=== PATIENT | female | born 1975 | race Caucasian/White ===

== ENCOUNTER 2016-12-25 20:51 | Emergency (ER) | payer OTHER ==
[~2016-12-25] VITALS: Ht 157.5 cm; Wt 105.5 kg
[~2016-12-25 20:51] MED LIST: ABILIFY2 MG PO; ADVAIR 500/501 DISK IH; ALBUTEROL2.5 MG/3 M IH; AMITRIPTYLINE H25 MG PO; BACTROBAN NASAL1 G1 BOTH NARES; BENZONATATE200 MG PO; CLINDAMYCIN PHO60 GM TP; CLONAZEPAM0.5 MG PO; ENDOCET 5-3251 EACH PO; Ecotrin PO; FLEXERIL10 MG PO; FLOVENT 11120 INHALA IH; FUROSEMIDE20 MG PO; HYDROCODON-ACE1 EAC7 PO; IBUPROFEN600 MG PO; IBUPROFEN800 MG PO; LEXAPRO10 MG PO; LISINOPRIL30 MG PO; LISINOPRIL40 MG PO; LORATADINE10 M2 PO; LOTREL 5/201 CAPSULE PO; MAG-AL PLUS SUS30 ML PO; METFORMIN HCL500 M1 PO; NEXIUM40 MG PO; OXTELLAR XR150 MG PO; PENNSAID112 GM TP; PERCOCET 10/1 TABLET PO; PERCOCET 5/31 TABLET PO; PREDNISONE5 M2 PO; PROAIR HFA8.5 GM IH; PROMETHAZINE HC25 M1 PO; SOMA350 MG PO; SUCRALFATE1 GM/10 ML PO; TRAMADOL HCL50 MG PO; TYLENOL EXTRA500 MG PO; VOLTAREN75 MG PO; ZANAFLEX4 MG PO; ZANTAC150 MG PO; ZOFRAN4 MG PO
[2016-12-25 21:15] LABS: HEMATOCRIT 31.5 % (36.0-46.0); MCH 30.2 PG (29.0-34.0); MCHC 32.7 G/DL (30.0-36.0); MCV 92.4 FL (83-99); MEAN PLAT.VOLUME 9.3 uM^3 (9.5-12.4); PLATELET COUNT 271 K/uL (156-360); RBC DIS.WIDTH-CV 12.4 % (11.8-14.6); RBC DIS.WIDTH-SD 40.3 % (39-53); RED BLOOD COUNT 3.41 M/uL (3.80-5.20); WHITE BLOOD COUNT 9.6 K/uL (4.1-10.2)
[2016-12-25 21:27] LABS: CHLORIDE 108 mEq/L (99-109); POTASSIUM 3.8 mEq/L (3.7-5.4); SODIUM 141 mEq/L (136-147)
[2016-12-25 21:29] LABS: GLUCOSE 115 mg/dL (70-99)
[2016-12-25 21:31] LABS: ANION GAP 9 MEQ/L (2-14); TOTAL BILIRUBIN 0.3 mg/dL (0.0-1.0)
[2016-12-25 21:33] LABS: ALKALINE PHOSPHATASE 74 IU/L (3-129); GFR ESTIMATE (CALCULATED) > 59 mL/min/
[2016-12-25 21:34] LABS: UREA NITROGEN (BUN) 10 mg/dL (9-23)
[2016-12-25 21:42] LABS: QUANTITATIVE HCG < 4.0 MIU/ML
[2016-12-25 21:50] LABS: ADD MIUA? YES; BILIRUBIN NEGATIVE; BLOOD SMALL; COLOR YELLOW ((YELLOW)); GLUCOSE (STRIP) NEGATIVE; KETONES NEGATIVE; LEUKOCYTES NEGATIVE; NITRITE NEGATIVE; PH, URINE 6.5 (5-8); PROTEIN (STRIP) NEGATIVE; SPECIFIC GRAVITY 1.006 (1.000-1.030); UROBILINOGEN 0.2 MG/DL (0.2-1.0)
[2016-12-25 22:03] LABS: BACTERIA NONE SEEN; CASTS NONE SEEN /LPF; CRYSTALS NONE SEEN; EPITHELIAL CELLS RARE; MUCUS NONE SEEN; PATHOLOGICAL CAST NONE SEEN; RED BLOOD CELLS 0-5 /HPF (0-5); SMALL ROUND CELL NONE SEEN; UCUL ADDED? NO; WHITE BLOOD CELLS 0-5 /HPF (0-5); YEAST-LIKE CELL NONE SEEN
[2016-12-25 22:29] VITALS: BP 132/85
== END 2016-12-25 22:31 | disposition home or self-care (01) ==
LOC: EME 20:51
DX: R60.0 Localized edema (principal); D64.9 Anemia, unspecified; J45.909 Unspecified asthma, uncomplicated; G89.29 Other chronic pain; E11.9 Type 2 diabetes mellitus without complications; M79.7 Fibromyalgia; K21.9 Gastro-esophageal reflux disease without esophagitis; Z87.891 Personal history of nicotine dependence
CPT/HCPCS: 80053; 81003; 84702; 85027; 99281; 99285

== ENCOUNTER 2017-01-27 19:05 | Emergency (ER) | payer OTHER ==
[~2017-01-27] VITALS: Ht 157.5 cm; Wt 113.1 kg
[2017-01-27 21:44] VITALS: BP 134/76
== END 2017-01-27 21:48 | disposition home or self-care (01) ==
LOC: EME 19:05
DX: M25.511 Pain in right shoulder (principal); G89.29 Other chronic pain; J45.909 Unspecified asthma, uncomplicated; E11.9 Type 2 diabetes mellitus without complications; K21.9 Gastro-esophageal reflux disease without esophagitis; Z87.891 Personal history of nicotine dependence; I10 Essential (primary) hypertension
CPT/HCPCS: 99281; 99284; J1885; J2270; J3360

== ENCOUNTER 2017-10-10 12:01 | Day surgery (SDC) | payer OTHER ==
[~2017-10-10] VITALS: Ht 157.5 cm; Wt 117.9 kg
[2017-10-10 12:42] VITALS: BP 142/85
[2017-10-10 18:17] VITALS: BP 143/75
[2017-10-10 19:37] VITALS: BP 167/81
== END 2017-10-10 21:45 | disposition home or self-care (01) ==
LOC: SDC 12:01 → ENRESERV 17:29 → 2SOUTH 17:30 → ENRESERV 17:36 → 2EAST 18:12
PROC: 0RG10A0 Fusion of Cervical Vertebral Joint with Interbody Fusion Device, Anterior Approach, Anterior Column, Open Approach (ICD-10-PCS; principal; 2017-10-10)
PROC: 0RB30ZZ Excision of Cervical Vertebral Disc, Open Approach (ICD-10-PCS; principal; 2017-10-10)
DX: M50.123 Cervical disc disorder at C6-C7 level with radiculopathy (principal); M43.17 Spondylolisthesis, lumbosacral region; M54.16 Radiculopathy, lumbar region; E66.9 Obesity, unspecified; Z68.42 Body mass index [BMI] 45.0-49.9, adult; I10 Essential (primary) hypertension; K21.9 Gastro-esophageal reflux disease without esophagitis; J45.909 Unspecified asthma, uncomplicated; M25.511 Pain in right shoulder; Z87.891 Personal history of nicotine dependence; Z88.0 Allergy status to penicillin
CPT/HCPCS: 72020; 76000; C1713; G0378; J0131; J0330; J0690; J1170; J1885; J2250; J2405; J2710; J3010; J3480

== ENCOUNTER 2017-10-12 19:24 | Inpatient (IN) | payer OTHER ==
[~2017-10-12] VITALS: Ht 157.5 cm; Wt 122.9 kg
[2017-10-12 21:22] LABS: HEMATOCRIT 30.4 % (36.0-46.0); MCHC 32.6 G/DL (30.0-36.0); MCV 92.1 FL (83-99); MEAN PLAT.VOLUME 9.6 uM^3 (9.5-12.4); PLATELET COUNT 260 K/uL (156-360); RBC DIS.WIDTH-CV 12.4 % (11.8-14.6); RBC DIS.WIDTH-SD 41.4 % (39-53); WHITE BLOOD COUNT 8.7 K/uL (4.1-10.2)
[2017-10-12 21:30] LABS: CHLORIDE 101 mEq/L (99-109); POTASSIUM 3.9 mEq/L (3.7-5.4); SODIUM 137 mEq/L (136-147)
[2017-10-12 21:32] LABS: GLUCOSE 96 mg/dL (70-99)
[2017-10-12 21:34] LABS: ANION GAP 9 MEQ/L (2-14); TOTAL BILIRUBIN 0.4 mg/dL (0.0-1.0)
[2017-10-12 21:36] LABS: ALKALINE PHOSPHATASE 69 IU/L (3-129); GFR ESTIMATE (CALCULATED) > 59 mL/min/
[2017-10-12 21:37] LABS: UREA NITROGEN (BUN) 9 mg/dL (9-23)
[2017-10-13] MEDS ORDERED: PROTONIX40 MG PO (00:31)
[2017-10-13] MEDS ORDERED: FLONASE16 G1 BOTH NARES (00:32)
[2017-10-13] MEDS ORDERED: VENTOLIN HFA18 GM IH (00:34)
[2017-10-13 03:44] VITALS: BP 170/77
[2017-10-13 07:33] VITALS: BP 142/71
[2017-10-13 11:20] VITALS: BP 140/77
[2017-10-13 15:50] VITALS: BP 147/69
== END 2017-10-13 18:53 | disposition home or self-care (01) | DRG 155 ==
LOC: EME 19:24 → 2EAST 10-13 00:15 → EDOF 10-13 00:15 → ENRESERV 10-13 00:33 → 2EAST 10-13 01:10
PROVIDERS: Physician Assistant
DX: J39.2 Other diseases of pharynx (principal); G89.18 Other acute postprocedural pain; Z98.1 Arthrodesis status; E11.9 Type 2 diabetes mellitus without complications; J45.909 Unspecified asthma, uncomplicated; I10 Essential (primary) hypertension; K21.9 Gastro-esophageal reflux disease without esophagitis; M79.7 Fibromyalgia; E66.9 Obesity, unspecified; Z68.42 Body mass index [BMI] 45.0-49.9, adult; Z87.891 Personal history of nicotine dependence
CPT/HCPCS: 70491; 72020; 76000; 80053; 81003; 83605; 85027; 87040; 87651 90; 99281; 99285; C1713; G0378; J0131; J0330; J0690; J1100; J1170; J1200; J1885; J2250; J2405; J2710; J3010; J3480; J7030

== ENCOUNTER 2017-10-18 19:01 | Emergency (ER) | payer OTHER ==
[~2017-10-18] VITALS: Ht 157.5 cm; Wt 116.4 kg
[~2017-10-18 19:01] MED LIST changes: +FLONASE16 G1 BOTH NARES; +PROTONIX40 MG PO; +VENTOLIN HFA18 GM IH
[2017-10-18 19:57] LABS: EOSINOPHIL (%) 0 % (0-5); IMMATURE GRANULOCYTE (%) 1.7 % (0.0-0.7); IMMATURE GRANULOCYTE COUNT 0.3 K/uL; INSTRUMENT ABS NEUTROPHIL CT 16.5 K/uL; LYMPHOCYTE COUNT 2.2 K/uL (1.0-2.8); MCV 90.9 FL (83-99); MEAN PLAT.VOLUME 9.6 uM^3 (9.5-12.4); MONOCYTE (%) 3.8 % (3-12); MONOCYTE COUNT 0.8 K/uL (0-0.8); NEUTROPHIL (%) 83.1 % (45-76); NEUTROPHIL COUNT 16.5 K/uL (1.8-6.4); RBC DIS.WIDTH-CV 12.3 % (11.8-14.6); RBC DIS.WIDTH-SD 40.6 % (39-53); WHITE BLOOD COUNT 19.8 K/uL (4.1-10.2)
[2017-10-18 19:58] LABS: PLATELET COUNT 378 K/uL (156-360); RED BLOOD COUNT 4.07 M/uL (3.80-5.20)
[2017-10-18 20:04] LABS: CHLORIDE 106 mEq/L (99-109); SODIUM 138 mEq/L (136-147)
[2017-10-18 20:06] LABS: GLUCOSE 195 mg/dL (70-99)
[2017-10-18 20:07] LABS: ANION GAP 9 MEQ/L (2-14)
[2017-10-18 20:09] LABS: GFR ESTIMATE (CALCULATED) > 59 mL/min/
[2017-10-18 20:11] LABS: UREA NITROGEN (BUN) 25 mg/dL (9-23)
[2017-10-18 22:10] VITALS: BP 152/95
== END 2017-10-18 22:10 | disposition home or self-care (01) ==
LOC: EME 19:01
PROVIDERS: Physician Assistant
DX: G89.18 Other acute postprocedural pain (principal); R07.0 Pain in throat; R22.1 Localized swelling, mass and lump, neck; Z98.890 Other specified postprocedural states; Z98.1 Arthrodesis status; M79.7 Fibromyalgia; K21.9 Gastro-esophageal reflux disease without esophagitis; J45.909 Unspecified asthma, uncomplicated; I10 Essential (primary) hypertension; E11.9 Type 2 diabetes mellitus without complications; Z87.891 Personal history of nicotine dependence; Z88.0 Allergy status to penicillin; Z88.1 Allergy status to other antibiotic agents; Z88.5 Allergy status to narcotic agent; Z88.6 Allergy status to analgesic agent; Z88.8 Allergy status to other drugs, medicaments and biological substances
CPT/HCPCS: 70491; 71020; 80048; 85025; 99281; 99284; J1100; J2405; J3010; J7030

== ENCOUNTER 2018-07-10 16:09 | Emergency (ER) | payer OTHER ==
[~2018-07-10] VITALS: Ht 157.5 cm; Wt 106.4 kg
[2018-07-10] MEDS ORDERED: FLEXERIL10 MG PO (18:27)
[2018-07-10 18:32] VITALS: BP 123/71
== END 2018-07-10 18:21 | disposition home or self-care (01) ==
LOC: EME 16:09
DX: M54.2 Cervicalgia (principal); I10 Essential (primary) hypertension; E11.9 Type 2 diabetes mellitus without complications; K21.9 Gastro-esophageal reflux disease without esophagitis; M79.7 Fibromyalgia; J45.909 Unspecified asthma, uncomplicated; M50.30 Other cervical disc degeneration, unspecified cervical region; Z98.1 Arthrodesis status; Z87.891 Personal history of nicotine dependence; Z88.6 Allergy status to analgesic agent; Z88.0 Allergy status to penicillin; Z88.1 Allergy status to other antibiotic agents; Z88.5 Allergy status to narcotic agent
CPT/HCPCS: 70450; 72125; 99281; 99284